=== PATIENT | female | born 1935 | race Caucasian/White ===

== ENCOUNTER 2017-10-12 11:15 | Outpatient (CLI) | payer MEDICARE ==
--- NOTE | 2017-10-12 13:18 | MRI ---
MRI BRAIN WITHOUT CONTRAST: Date: 10/12/17 HISTORY: Confusion and disorientation. FINDINGS: Comparison made with exam of 04/15/06,. No restricted diffusion is seen. No evidence of infarct, hemorrhage, midline shift, or abnormal extra -axial fluid collections are noted. There are multiple foci of T2 prolongation in the periventricular white matter consistent with chronic small vessel ischemic disease. The ventricular size is appropri ate and the basilar cisterns are patent. The visualized paranasal sinuses are well aerated. There is a small amount of fluid in the mastoid air cells. IMPRESSION: 1. Chronic small vessel ischemic disease. 2. No evidence of acute intracranial process. POS: [facility]
--- NOTE | 2017-10-20 13:36 | EEG ---
Referring Physician: DR. KATHRINE LE EEG # [id number] PROCEDURE: Outpatient electroencephalogram NAME OF PATIENT: Gwendolyn Wetzel : 1935 DATE EEG DONE: 10/12/2017. INDICATION: Episode of confusion, disorientation, lethargy. EEG CLASSIFICATION: Normal awake and drowsy. REPORT: This is a 22-channel digital EEG recording utilizing 10-20 international electrode placement system on a patient who presents with episodes of confusion, disorientation and lethargy. During wakefulness, the background activity consists of moderate to high amplitude dominant alpha rhythm of 8-10 Hz. It is symmetric and reactive. This activity is penetrated occasionally by low amplitude fast beta activity and with myogenic activity representing frontalis and temporalis muscles bilaterally. There is no asymmetry noted between the two hemispheres. DROWSINESS AND SLEEP: Subject is able to attain brief periods of drowsiness with diffuse theta activity. No clear sleep recorded during this EEG. There is no asymmetry or paroxysmal activity noted. INDUCTION: HYPERVENTILATION: Hyperventilation did not show any significant change in the background activity. Hyperventilation was stopped after 2-1/2 minutes due to patient complaining of dizziness. PHOTIC STIMULATION: No photic drive seen. EK per minute. IMPRESSION: This EEG is considered normal awake and drowsy EEG. There is no clear epileptiform activity or focal abnormality noted. Clinical correlation recommended. Softball Core Molder: YASH Tenon Machine Operator: [email or web address]
== END 2017-10-12 11:16 | disposition home or self-care (01) ==
LOC: MRI 11:15
PROVIDERS: ATTEND Student in an Organized Health Care Education/Training Program
DX: R41.0 Disorientation, unspecified (principal); F44.89 Other dissociative and conversion disorders; I67.82 Cerebral ischemia
CPT/HCPCS: 70551; 95816

== ENCOUNTER 2018-11-22 10:30 | Emergency (ER) | payer MEDICARE ==
[2018-11-22] MEDS ORDERED: Dexamethasone 4 mg/ml Vial ONE (12:29)
[2018-11-22] MEDS ORDERED: Dexamethasone 10 MG/ML VIAL ONE (12:31)
--- NOTE | 2018-11-22 13:30 | RAD ---
XR Chest 1 View Portable History: Chest pain Comparison: Radiograph 12/12/2015 Findings: Mild chronic blunting left lateral costophrenic sulcus. Recording device projects over the left hemithorax. No focal airspace consolidation. Mild S-shaped scoliosis. Impression: No acute intrathoracic abnormality.
[2018-11-22 13:49] LABS: #Eosinphils 0.2 thou/uL (0.0-0.7); #Lymphocytes 1.7 thou/uL (1.20-3.40); #Monocytes 0.6 thou/uL (0.11-0.59); #Neutrophils 4.7 thou/uL (1.40-6.50); %Basophils 0.6 % (0.0-1.0); %Eosinophils 3.2 % (0.0-10.0); %Lymphocytes 23.9 % (21.0-51.0); %Monocytes 8.2 % (0.0-10.0); %Neutrophils 64.2 % (42.0-75.0); Hemoglobin 14.3 g/dL (12.0-16.0); Mean Corpuscular HGB CONC 33.1 g/dL (32.0-36.0); Mean Corpuscular Hemoglobin 31.2 pg (27.0-31.0); Mean Corpuscular Volume 94.5 fL (78.0-98.0); Mean Platelet Volume 10.2 fL (7.4-10.4); Platelet Count 186 thou/uL (130-400); RBC Distribution Width 12.5 % (11.5-14.5); Red Blood Cell (RBC) Count 4.59 mill/uL (4.20-5.40); White Blood Cell (WBC) Count 7.3 thou/uL (4.8-10.8)
[2018-11-22 14:09] LABS: ALT (SGPT) 12 U/L (8-55); AST (SGOT) 15 U/L (5-34); Albumin 3.9 g/dL (3.4-4.8); Alkaline Phosphatase 59 U/L (40-150); Anion Gap 12 mmol/L (10-20); BUN (Urea Nitrogen) 9 mg/dL (9.8-20.1); Bilirubin, Total 0.6 mg/dL (0.2-1.2); Calc. Creatinine Clearance 0 mL/min (70-130); Calcium 9.4 mg/dL (7.8-10.44); Carbon Dioxide 26 mmol/L (23-31); Chloride 108 mmol/L (98-107); Estimated GFR-MDRD 67; Glucose 93 mg/dL (83-110); Potassium 4.3 mmol/L (3.5-5.1); Protein, Total 5.9 g/dL (6.0-8.3); Sodium 142 mmol/L (136-145)
== END 2018-11-22 15:40 | disposition home or self-care (01) ==
LOC: ERS 10:30
DX: M54.12 Radiculopathy, cervical region (principal); Z87.891 Personal history of nicotine dependence
CPT/HCPCS: 36415; 71045; 80053; 84484; 85025; 93005; 96372; J1100

== ENCOUNTER 2019-01-11 13:00 | Outpatient (CLI) | payer MEDICARE ==
[~2019-01-11 13:00] MED LIST: Gadobenate Dimeglumine 529 MG/1 ML (20ML VIAL) ONE
--- NOTE | 2019-01-11 14:40 | CT ---
CT CERVICAL SPINE WITHOUT CONTRAST: 01/11/19 COMPARISON: 02/07/15. HISTORY: Cervical fusion. Patient heard/felt a popping in his neck. Pain radiates down the right arm. FINDINGS: No craniocervical dissociation. Appropriate alignment of the lateral masses of C1 and C2. Intact odo ntoid process. Cervical spine vertebral height is maintained. No fracture. Uncomplicated cervical fus ion at C4 and C5. Intervening disc space has a prosthesis. No perihardware lucency. Soft tissue calcifications are due to atherosclerotic disease of the carotid arteries. Soft tissue ne ck structures are otherwise unremarkable. Upper mediastinum and lung apices are also unremarkable. Cervical spine vertebral body height is maintained. No fracture. C2-C3: No significant central canal stenosis. Neural foramina are patent. C3-C4: No significant central canal stenosis or neural foraminal narrowing. Right facet hypertrophy. C4-C5: No significant central canal stenosis. Minimal central osteophyte ridge. Neural foramina are p atent. There is 2.6 mm of anterolisthesis of C4 upon C5. C5-C6: There appears to be fusion of the disc space. No high grade central canal stenosis. Mild bilat eral foraminal narrowing due to uncovertebral and facet hypertrophy. C6-C7: 1.8 mm of anterolisthesis of C6 upon C7. No significant central canal stenosis. Neural foramin a are patent. There is right facet hypertrophy. C7-T1: No significant central canal stenosis. Neural foramina are patent. IMPRESSION: 1. Uncomplicated cervical fusion at C4-C5. 2. Disc prosthesis at C4-C5. Fusion of the C5-C6 disc space, unchanged. 3. Varying degrees of neural foraminal narrowing as detailed above. POS: [facility]
--- NOTE | 2019-01-11 15:11 | MRI ---
MRI CERVICAL SPINE WITH AND WITHOUT CONTRAST: 01/11/19 HISTORY: Patient heard pops and crackles in her neck. Previous cervical fusion. COMPARISON: None. TECHNIQUE: The cervical spine MRI is performed with and without intravenous gadolinium administration. Multisequ ential, multiplanar imaging is performed. FINDINGS: Appropriate T1 marrow signal intensity of the cervical vertebrae. Cervical spine vertebral body heigh t is maintained. No fracture. No significant STIR hyperintensity to suggest vertebral body edema or l igamentous injury. Note, there is metallic susceptibility artifact limiting evaluation of the C4 and C5 levels. The visualized brain parenchyma, cervicomedullary junction, cervical cord, and the upper thoracic cor d have a normal size and signal intensity. On the postcontrast images, no abnormal enhancement of the visualized brain parenchyma or spinal cord . No abnormal enhancement with regards to the vertebral bodies. There is 1.4 mm of anterolisthesis of C3 upon C4 and 2.3 mm anterolisthesis of C7 upon T1. C2-C3: No significant central canal stenosis. Neural foramina are patent bilaterally. C3-C4: No significant central canal stenosis. Mild right foraminal narrowing due to uncovertebral and facet hypertrophy. Left neural foramen is patent. C4-C5: No significant osteophyte ridge. No significant central canal stenosis. Neural foramina are pa tent. C5-C6: Fusion of the disc space. Broad based osteophyte ridge with mild central canal stenosis. Mild right and left foraminal narrowing. C6-C7: No significant central canal stenosis of foraminal narrowing. T1-T2: Generalized disc bulge with mild central canal stenosis. T2-T3: Limited evaluation but there does appear to be mass effect upon the thecal sac secondary to t he disc bulge. Dedicated thoracic spine imaging is recommended. IMPRESSION: 1. Uncomplicated cervical fusion hardware. 2. Degenerative change of the cervical spine as detailed above. 3. Degenerative change of the upper thoracic spine, incompletely evaluated. Dedicated thoracic s pine imaging is recommended. POS: OFF
--- NOTE | 2019-01-11 15:42 | RAD ---
CERVICAL SPINE SEVEN VIEWS INCLUDING FLEXION AND EXTENSION: HISTORY: Disk degenerative disease. Cervical radiculopathy. Neck pain. Cervical spine stenosis. COMPARISON: 03/28/2016 FINDINGS: C1 to the cervicothoracic junction is seen on the lateral Swimmer's views of the cervical spine. Again noted are post surgical changes related to anterior cervical fusion, with an anterior plate and screws again transfixing the C4-C5 level. There also appears to be osseous fusion of the C5 and C6 vertebral bodies, also present on the prior exam. Intradiskal prosthesis at the C4-C5 level is prese nt. There is stable trace anterolisthesis of C6 on C7. Multilevel facet degenerative changes are no cindi. There does appear to be correction of the trace anterolisthesis of C6 on C7 on extension, yefri red with flexion. The odontoid is not well seen on the odontoid view, but is grossly normal in appearance on the latera l projection. The prevertebral soft tissues are within normal limits. IMPRESSION: 1. Stable postoperative and degenerative changes of the cervical spine. 2. Stable trace anterolisthesis of C6 on C7, which appears to correct with extension compared to fle irjaon. POS: [facility]
== END 2019-01-11 13:01 | disposition home or self-care (01) ==
LOC: BICCT 13:00
PROVIDERS: ATTEND Physician Assistant Surgical
DX: M50.30 Other cervical disc degeneration, unspecified cervical region (principal); M54.12 Radiculopathy, cervical region; M48.02 Spinal stenosis, cervical region; Z98.1 Arthrodesis status; Z98.890 Other specified postprocedural states
CPT/HCPCS: 72050; 72125; 72156; 82565; A9577

== ENCOUNTER 2019-11-03 06:47 | Emergency (ER) | payer MEDICARE ==
[2019-11-03 07:25] LABS: #Eosinphils 0.2 thou/uL (0.0-0.7); #Lymphocytes 1.9 thou/uL (1.20-3.40); #Monocytes 0.7 thou/uL (0.11-0.59); #Neutrophils 6.4 thou/uL (1.40-6.50); %Basophils 0.5 % (0.0-1.0); %Eosinophils 2.3 % (0.0-10.0); %Lymphocytes 20.2 % (21.0-51.0); %Monocytes 7.9 % (0.0-10.0); %Neutrophils 69.1 % (42.0-75.0); Hemoglobin 15.5 g/dL (12.0-16.0); Mean Corpuscular HGB CONC 32.8 g/dL (32.0-36.0); Mean Corpuscular Hemoglobin 32.3 pg (27.0-31.0); Mean Corpuscular Volume 98.6 fL (78.0-98.0); Mean Platelet Volume 9.8 fL (7.4-10.4); Platelet Count 202 thou/uL (130-400); RBC Distribution Width 12.5 % (11.5-14.5); Red Blood Cell (RBC) Count 4.79 mill/uL (4.20-5.40); White Blood Cell (WBC) Count 9.2 thou/uL (4.8-10.8)
[2019-11-03 07:45] LABS: ALT (SGPT) 15 U/L (8-55); AST (SGOT) 21 U/L (5-34); Albumin 3.9 g/dL (3.4-4.8); Alkaline Phosphatase 65 U/L (40-110); Anion Gap 15 mmol/L (10-20); BUN (Urea Nitrogen) 9 mg/dL (9.8-20.1); Bilirubin, Total 0.6 mg/dL (0.2-1.2); Calc. Creatinine Clearance 0 mL/min (70-130); Calcium 9.1 mg/dL (7.8-10.44); Carbon Dioxide 21 mmol/L (23-31); Chloride 109 mmol/L (98-107); Estimated GFR-MDRD 64; Globulin 2.5 g/dL (2.4-3.5); Glucose 111 mg/dL (83-110); Magnesium 2.1 mg/dL (1.6-2.6); Protein, Total 6.4 g/dL (6.0-8.3); Sodium 141 mmol/L (136-145)
--- NOTE | 2019-11-03 07:53 | RAD ---
SINGLE VIEW OF THE CHEST: COMPARISON: 11/22/2018. HISTORY: Weakness. FINDINGS: A single view of the chest shows a normal-size cardiomediastinal silhouette. A cardiac monitoring de vice projects over the left chest wall. Atherosclerotic calcifications are seen in the aorta. There is no evidence of consolidation, mass, or pleural effusion. IMPRESSION: No evidence of acute cardiopulmonary disease. POS: [facility]
[2019-11-03 08:17] LABS: Bilirubin Negative (Negative); Blood, Urine Negative (Negative); Clarity Clear (Clear); Glucose, Urine (Dipstick) Normal (Negative); Leukocyte Negative Leu/uL (Negative); Nitrite Negative (Negative); Protein, Urine (Dipstick) Negative (Neg-Trace); Urobilinogen Normal mg/dL (Less than 2)
== END 2019-11-03 09:39 | disposition home or self-care (01) ==
LOC: ERS 06:47
DX: R53.1 Weakness (principal); F41.9 Anxiety disorder, unspecified; Z87.891 Personal history of nicotine dependence; Z79.899 Other long term (current) drug therapy
CPT/HCPCS: 36415; 51701; 71045; 80053; 81003; 83735; 84484; 85025; 93005; A4353

== ENCOUNTER 2020-05-22 09:27 | Emergency (ER) | payer MEDICARE ==
--- NOTE | 2020-05-22 10:24 | RAD ---
RADIOGRAPH CHEST 1 VIEW: DATE: 05/22/2020 HISTORY: 84-year-old female with cough FINDINGS: There is no airspace density, pulmonary edema, or pneumothorax. The lateral costophrenic angles are n ot effaced. IMPRESSION: No acute pulmonary findings.
[2020-05-22] MEDS ORDERED: Iopamidol-370 76% 500 ML 1 ML ONE (10:33)
[2020-05-22 10:35] LABS: #Eosinphils 0.2 thou/uL (0.0-0.7); #Lymphocytes 1.5 thou/uL (1.20-3.40); #Monocytes 0.5 thou/uL (0.11-0.59); #Neutrophils 5.2 thou/uL (1.40-6.50); %Basophils 0.6 % (0.0-1.0); %Eosinophils 2.2 % (0.0-10.0); %Lymphocytes 20.7 % (21.0-51.0); %Monocytes 6.4 % (0.0-10.0); %Neutrophils 70.1 % (42.0-75.0); Hemoglobin 16.3 g/dL (12.0-16.0); Mean Corpuscular HGB CONC 32.6 g/dL (32.0-36.0); Mean Corpuscular Hemoglobin 32.6 pg (27.0-31.0); Mean Platelet Volume 10.6 fL (7.4-10.4); Platelet Count 230 thou/uL (130-400); RBC Distribution Width 13.3 % (11.5-14.5); Red Blood Cell (RBC) Count 4.98 mill/uL (4.20-5.40); White Blood Cell (WBC) Count 7.4 thou/uL (4.8-10.8)
[2020-05-22 11:07] LABS: ALT (SGPT) 21 U/L (8-55); AST (SGOT) 34 U/L (5-34); Albumin 3.9 g/dL (3.4-4.8); Alkaline Phosphatase 64 U/L (40-110); Anion Gap 18 mmol/L (10-20); BUN (Urea Nitrogen) 12 mg/dL (9.8-20.1); Bilirubin, Total 0.8 mg/dL (0.2-1.2); Calc. Creatinine Clearance 0 mL/min (70-130); Calcium 9.3 mg/dL (7.8-10.44); Carbon Dioxide 21 mmol/L (23-31); Chloride 106 mmol/L (98-107); Globulin 2.9 g/dL (2.4-3.5); Glucose 119 mg/dL (83-110); Lipase 5 U/L (8-78); Potassium 4.2 mmol/L (3.5-5.1); Protein, Total 6.8 g/dL (6.0-8.3); Sodium 141 mmol/L (136-145)
--- NOTE | 2020-05-22 12:02 | CT ---
CT BRAIN WITHOUT CONTRAST: HISTORY:Altered mental status COMPARISON:09/16/2015 FINDINGS: There are foci of decreased attenuation in the periventricular white matter, consistent with chronic small vessel ischemic disease. No evidence of acute infarct, hemorrhage, midline shift or abnormal extra-axial fluid collections is seen. The ventricular size is appropriate and the basilar cisterns are patent. The bony calvarium is intact. The visualized paranasal sinuses and mastoid air cells are well aerated. IMPRESSION: No CT evidence of acute intracranial process.
--- NOTE | 2020-05-22 13:38 | CT ---
CT ABDOMEN AND PELVIS PERFORMED WITH CONTRAST ENHANCEMENT: 05/22/20 HISTORY: Abdominal pain. The lung bases are clear of infiltrates. The liver and spleen appear unremarkable. The pancreas is mildly strophic. The gallbladder has been r emoved. Right and left adrenal glands are normal. There is some cortical scarring involving the left kidney. No obstruction. There is no significant periaortic or mesenteric adenopathy. No evidence for obstruct ion. CT OF PELVIS PERFORMED WITH CONTRAST ENHANCEMENT: The appendix is not definitely identified. No pelvic lymphadenopathy or mass. Sigmoid diverticulosis is noted. Marked arthritic changes in the spine are noted. Prominent spondylolisthesis of L4 on L5 and pars def ects noted. IMPRESSION: 1. No acute findings of the abdomen or pelvis. 2. Post cholecystectomy change. 3. Sigmoid diverticulosis. POS: [facility]
[2020-05-22 13:44] LABS: Bilirubin Negative (Negative); Blood, Urine Negative (Negative); Clarity Clear (Clear); Glucose, Urine (Dipstick) Normal (Negative); Ketone, Urine 10 mg/dL (Negative); Leukocyte Negative Leu/uL (Negative); Nitrite Negative (Negative); Protein, Urine (Dipstick) Negative (Neg-Trace); Urobilinogen Normal mg/dL (Less than 2)
[2020-05-22 13:47] LABS: Specific Gravity, Urine 1.045 (1.002-1.036)
== END 2020-05-22 14:33 | disposition home or self-care (01) ==
LOC: ERS 09:27
DX: R10.9 Unspecified abdominal pain (principal); R10.817 Generalized abdominal tenderness; I95.9 Hypotension, unspecified; Z87.891 Personal history of nicotine dependence; Z79.899 Other long term (current) drug therapy
CPT/HCPCS: 36415; 70450; 71045; 74177; 80053; 81003; 83605; 83690; 83880; 84484; 85025; 87040; 87086; 93005; Q9967

== ENCOUNTER 2020-05-24 13:07 | Emergency (ER) | payer MEDICARE ==
[2020-05-24 15:27] LABS: #Eosinphils 0.1 thou/uL (0.0-0.7); #Lymphocytes 1.8 thou/uL (1.20-3.40); #Monocytes 0.7 thou/uL (0.11-0.59); #Neutrophils 7.9 thou/uL (1.40-6.50); %Basophils 0.4 % (0.0-1.0); %Eosinophils 0.7 % (0.0-10.0); %Lymphocytes 17.1 % (21.0-51.0); %Monocytes 6.7 % (0.0-10.0); Hemoglobin 16.6 g/dL (12.0-16.0); Mean Corpuscular HGB CONC 33.3 g/dL (32.0-36.0); Mean Corpuscular Hemoglobin 33.1 pg (27.0-31.0); Mean Corpuscular Volume 99.4 fL (78.0-98.0); Mean Platelet Volume 9.9 fL (7.4-10.4); Platelet Count 233 thou/uL (130-400); RBC Distribution Width 13.1 % (11.5-14.5); Red Blood Cell (RBC) Count 5.03 mill/uL (4.20-5.40); White Blood Cell (WBC) Count 10.5 thou/uL (4.8-10.8)
[2020-05-24 15:53] LABS: ALT (SGPT) 21 U/L (8-55); AST (SGOT) 24 U/L (5-34); Albumin 4.1 g/dL (3.4-4.8); Alkaline Phosphatase 58 U/L (40-110); Anion Gap 20 mmol/L (10-20); BUN (Urea Nitrogen) 20 mg/dL (9.8-20.1); Bilirubin, Total 0.8 mg/dL (0.2-1.2); Calc. Creatinine Clearance 0 mL/min (70-130); Calcium 9.2 mg/dL (7.8-10.44); Carbon Dioxide 20 mmol/L (23-31); Chloride 102 mmol/L (98-107); Globulin 2.6 g/dL (2.4-3.5); Glucose 89 mg/dL (83-110); Potassium 4.3 mmol/L (3.5-5.1); Protein, Total 6.7 g/dL (6.0-8.3); Sodium 138 mmol/L (136-145)
[2020-05-24] MEDS ORDERED: Morphine 2 MG/ML VIAL ONE (16:45)
== END 2020-05-24 19:10 | disposition home or self-care (01) ==
LOC: ERS 13:07
DX: R51.9 Headache, unspecified (principal); F41.9 Anxiety disorder, unspecified; Z87.891 Personal history of nicotine dependence; Z79.899 Other long term (current) drug therapy
CPT/HCPCS: 80053; 85025; 85652; 86140; J2270; 36415; 96372; 99284

== ENCOUNTER 2020-12-21 15:34 | Emergency (ER) | payer MEDICARE ==
[2020-12-21 15:59] LABS: #Eosinphils 0.1 thou/uL (0.0-0.7); #Lymphocytes 1.7 thou/uL (1.20-3.40); #Monocytes 0.9 thou/uL (0.11-0.59); #Neutrophils 7.7 thou/uL (1.40-6.50); %Basophils 0.4 % (0.0-1.0); %Eosinophils 0.6 % (0.0-10.0); %Lymphocytes 16.2 % (21.0-51.0); %Monocytes 8.8 % (0.0-10.0); %Neutrophils 74.1 % (42.0-75.0); Hemoglobin 15.9 g/dL (12.0-16.0); Mean Corpuscular HGB CONC 35.1 g/dL (32.0-36.0); Mean Platelet Volume 10.7 fL (7.4-10.4); Platelet Count 200 thou/uL (130-400); RBC Distribution Width 15.7 % (11.5-14.5); Red Blood Cell (RBC) Count 4.29 mill/uL (4.20-5.40); White Blood Cell (WBC) Count 10.4 thou/uL (4.8-10.8)
[2020-12-21 16:27] LABS: ALT (SGPT) 15 U/L (8-55); AST (SGOT) 18 U/L (5-34); Albumin 3.2 g/dL (3.4-4.8); Alkaline Phosphatase 70 U/L (40-110); Anion Gap 12 mmol/L (10-20); BUN (Urea Nitrogen) 34 mg/dL (9.8-20.1); Bilirubin, Total 1.1 mg/dL (0.2-1.2); Calc. Creatinine Clearance 0 mL/min (70-130); Calcium 9.1 mg/dL (7.8-10.44); Carbon Dioxide 25 mmol/L (23-31); Chloride 107 mmol/L (98-107); Globulin 2.4 g/dL (2.4-3.5); Glucose 88 mg/dL (83-110); Lipase 7 U/L (8-78); Potassium 3.4 mmol/L (3.5-5.1); Protein, Total 5.6 g/dL (5.8-8.1); Sodium 141 mmol/L (136-145)
[2020-12-21 16:34] LABS: Clarity Clear (Clear); Specific Gravity, Urine 1.022 (1.002-1.036)
[2020-12-21 16:35] LABS: Bilirubin Unable to Interpret (Negative); Blood, Urine Unable to Interpret (Negative); Glucose, Urine (Dipstick) Unable to Interpret mg/dL (Negative); Ketone, Urine Unable to Interpret mg/dL (Negative); Leukocyte Unable to Interpret (Negative); Nitrite Unable to Interpret (Negative); Protein, Urine (Dipstick) Unable to Interpret mg/dL (Neg-Trace); Urobilinogen UNABLE TO INTERPRET mg/dL (Less than 2); pH, Urine 4.9 (5.0-9.0)
[2020-12-21 16:38] LABS: Bacteria/HPF Rare-Few HPF (None Seen); RBC/HPF None Seen HPF (0-3); Squamous Epithelial 0-3 HPF (0-3); WBC/HPF 0-3 HPF (0-3)
== END 2020-12-21 21:30 ==
LOC: ERS 15:34
DX: F03.90 Unspecified dementia, unspecified severity, without behavioral disturbance, psychotic disturbance, mood disturbance, and anxiety (principal); R53.1 Weakness; I95.9 Hypotension, unspecified; R26.9 Unspecified abnormalities of gait and mobility; R00.0 Tachycardia, unspecified; Z87.891 Personal history of nicotine dependence; W19.XXXA Unspecified fall, initial encounter
CPT/HCPCS: 36415; 51701; 70450; 80053; 81003; 81015; 83605; 83690; 83880; 84484; 85025; 87086; 93005

== ENCOUNTER 2021-03-07 09:05 | Emergency (ER) | payer MEDICARE ==
[2021-03-07 09:50] LABS: #Eosinphils 0.3 thou/uL (0.0-0.7); #Lymphocytes 1.6 thou/uL (1.20-3.40); #Monocytes 0.7 thou/uL (0.11-0.59); #Neutrophils 3.9 thou/uL (1.40-6.50); %Basophils 0.6 % (0.0-1.0); %Eosinophils 4.8 % (0.0-10.0); %Lymphocytes 24.7 % (21.0-51.0); Hemoglobin 12.7 g/dL (12.0-16.0); Mean Corpuscular HGB CONC 32.9 g/dL (32.0-36.0); Mean Platelet Volume 11.1 fL (7.4-10.4); Platelet Count 193 thou/uL (130-400); RBC Distribution Width 13.3 % (11.5-14.5); Red Blood Cell (RBC) Count 3.84 mill/uL (4.20-5.40); White Blood Cell (WBC) Count 6.5 thou/uL (4.8-10.8)
[2021-03-07 10:13] LABS: ALT (SGPT) 15 U/L (8-55); AST (SGOT) 20 U/L (5-34); Albumin 3.5 g/dL (3.4-4.8); Alkaline Phosphatase 49 U/L (40-110); Anion Gap 10 mmol/L (10-20); BUN (Urea Nitrogen) 15 mg/dL (9.8-20.1); Bilirubin, Total 0.6 mg/dL (0.2-1.2); Calc. Creatinine Clearance 0 mL/min (70-130); Calcium 9.3 mg/dL (7.8-10.44); Carbon Dioxide 24 mmol/L (23-31); Chloride 109 mmol/L (98-107); Globulin 2.4 g/dL (2.4-3.5); Glucose 95 mg/dL (83-110); Potassium 4.3 mmol/L (3.5-5.1); Protein, Total 5.9 g/dL (5.8-8.1); Sodium 139 mmol/L (136-145)
[2021-03-07 12:23] LABS: Bilirubin Negative (Negative); Blood, Urine Negative (Negative); Glucose, Urine (Dipstick) Negative (Negative); Ketone, Urine Negative (Negative); Leukocyte Negative (Negative); Nitrite Negative (Negative); Protein, Urine (Dipstick) Negative (Neg-Trace); Urobilinogen 0.2 mg/dL (Less than 2)
[2021-03-07 12:31] LABS: Clarity Clear (Clear)
== END 2021-03-07 14:20 | disposition home or self-care (01) ==
LOC: ERS 09:05
DX: M25.522 Pain in left elbow (principal); M25.561 Pain in right knee; E03.9 Hypothyroidism, unspecified; W19.XXXA Unspecified fall, initial encounter; Y92.129 Unspecified place in nursing home as the place of occurrence of the external cause; Z87.891 Personal history of nicotine dependence; Z79.899 Other long term (current) drug therapy
CPT/HCPCS: 51701; 70450; 72125; 80053; 81003; 84484; 85025; 93005; 94760

== ENCOUNTER 2021-03-29 20:18 | Emergency (ER) | payer MEDICARE ==
[2021-03-29] MEDS ORDERED: Acetaminophen 325 MG TAB ONE (21:00)
[2021-03-29 21:01] LABS: #Basophils 0.1 thou/uL (0.0-0.2); #Eosinphils 0.1 thou/uL (0.0-0.7); #Monocytes 0.7 thou/uL (0.11-0.59); #Neutrophils 6.5 thou/uL (1.40-6.50); %Basophils 0.6 % (0.0-1.0); %Eosinophils 1.4 % (0.0-10.0); %Lymphocytes 21.4 % (21.0-51.0); %Monocytes 7.7 % (0.0-10.0); %Neutrophils 68.9 % (42.0-75.0); Hemoglobin 12.9 g/dL (12.0-16.0); Mean Corpuscular HGB CONC 34.5 g/dL (32.0-36.0); Mean Corpuscular Hemoglobin 34.1 pg (27.0-31.0); Mean Corpuscular Volume 98.7 fL (78.0-98.0); Mean Platelet Volume 10.7 fL (7.4-10.4); Platelet Count 215 thou/uL (130-400); RBC Distribution Width 12.3 % (11.5-14.5); Red Blood Cell (RBC) Count 3.78 mill/uL (4.20-5.40); White Blood Cell (WBC) Count 9.4 thou/uL (4.8-10.8)
[2021-03-29 21:29] LABS: ALT (SGPT) 7 U/L (8-55); AST (SGOT) 12 U/L (5-34); Albumin 3.7 g/dL (3.4-4.8); Alkaline Phosphatase 62 U/L (40-110); Anion Gap 16 mmol/L (10-20); BUN (Urea Nitrogen) 16 mg/dL (9.8-20.1); Bilirubin, Total 0.3 mg/dL (0.2-1.2); Calc. Creatinine Clearance 0 mL/min (70-130); Calcium 9.5 mg/dL (7.8-10.44); Carbon Dioxide 23 mmol/L (23-31); Chloride 105 mmol/L (98-107); Globulin 2.4 g/dL (2.4-3.5); Glucose 90 mg/dL (83-110); Lipase 17 U/L (8-78); Protein, Total 6.1 g/dL (5.8-8.1); Sodium 140 mmol/L (136-145)
== END 2021-03-30 00:50 | disposition home or self-care (01) ==
LOC: ERS 20:18
DX: R07.81 Pleurodynia (principal); I95.9 Hypotension, unspecified; Z87.891 Personal history of nicotine dependence; E03.9 Hypothyroidism, unspecified; Z79.899 Other long term (current) drug therapy
CPT/HCPCS: 36415; 71045; 80053; 83690; 84484; 85025; 93005

== ENCOUNTER 2021-03-31 16:57 | Emergency (ER) | payer OTHER, MEDICARE ==
[2021-03-31] MEDS ORDERED: Bacitracin 1 PK ONE (18:31)
== END 2021-03-31 19:20 ==
LOC: ERS 16:57
DX: S09.90XA Unspecified injury of head, initial encounter (principal); S51.812A Laceration without foreign body of left forearm, initial encounter; W01.198A Fall on same level from slipping, tripping and stumbling with subsequent striking against other object, initial encounter; Z79.899 Other long term (current) drug therapy; E03.9 Hypothyroidism, unspecified; Z87.891 Personal history of nicotine dependence
CPT/HCPCS: 70450; 72125

== ENCOUNTER 2021-05-20 13:53 | Outpatient (CLI) | payer MEDICARE ==
[2021-05-21 11:04] LABS: SARS-CoV-2 PCR by NAA Not Detected (NotDetected)
== END 2021-05-20 13:54 | disposition home or self-care (01) ==
LOC: LABBT 13:53
PROVIDERS: ATTEND Internal Medicine Gastroenterology
DX: Z01.812 Encounter for preprocedural laboratory examination (principal); Z20.822 Contact with and (suspected) exposure to COVID-19
CPT/HCPCS: U0003; U0005

== ENCOUNTER 2021-05-23 09:49 | Day surgery (SDC) | payer MEDICARE ==
[2021-05-22 13:32] VITALS: BMI 17.6
[2021-05-23] MEDS ORDERED: Ketamine 50 MG/ML (10ML VIAL) ONE (12:05)
[2021-05-23] MEDS ORDERED: PROPOFOL 200 MG/20 ML VIAL ONE (12:22)
== END 2021-05-23 13:30 ==
LOC: SDC 09:49
PROVIDERS: ATTEND Internal Medicine Gastroenterology
PROC: 0D757ZZ Dilation of Esophagus, Via Natural or Artificial Opening (ICD-10-PCS; principal; 2021-05-23)
DX: R13.12 Dysphagia, oropharyngeal phase (principal); K44.9 Diaphragmatic hernia without obstruction or gangrene; E78.5 Hyperlipidemia, unspecified; E03.9 Hypothyroidism, unspecified; K21.9 Gastro-esophageal reflux disease without esophagitis; Z79.899 Other long term (current) drug therapy; Z88.5 Allergy status to narcotic agent; Z87.891 Personal history of nicotine dependence
CPT/HCPCS: J2704

== ENCOUNTER 2021-07-02 01:50 | Emergency (ER) | payer MEDICARE ==
[2021-07-02 02:45] LABS: #Basophils 0.1 thou/uL (0.0-0.2); #Eosinphils 0.1 thou/uL (0.0-0.7); #Lymphocytes 1.5 thou/uL (1.20-3.40); #Monocytes 0.8 thou/uL (0.11-0.59); #Neutrophils 4.4 thou/uL (1.40-6.50); %Basophils 1.1 % (0.0-1.0); %Eosinophils 1.8 % (0.0-10.0); %Lymphocytes 21.5 % (21.0-51.0); %Monocytes 11.2 % (0.0-10.0); %Neutrophils 64.4 % (42.0-75.0); Hemoglobin 14.6 g/dL (12.0-16.0); Mean Corpuscular HGB CONC 35.1 g/dL (32.0-36.0); Mean Corpuscular Hemoglobin 33.8 pg (27.0-31.0); Mean Corpuscular Volume 96.3 fL (78.0-98.0); Mean Platelet Volume 9.5 fL (7.4-10.4); Platelet Count 197 thou/uL (130-400); RBC Distribution Width 13.5 % (11.5-14.5); Red Blood Cell (RBC) Count 4.32 mill/uL (4.20-5.40); White Blood Cell (WBC) Count 6.8 thou/uL (4.8-10.8)
[2021-07-02 03:08] LABS: ALT (SGPT) 12 U/L (8-55); AST (SGOT) 14 U/L (5-34); Albumin 4.1 g/dL (3.4-4.8); Alkaline Phosphatase 52 U/L (40-110); Anion Gap 17 mmol/L (10-20); BUN (Urea Nitrogen) 17 mg/dL (9.8-20.1); Bilirubin, Total 1.8 mg/dL (0.2-1.2); Calc. Creatinine Clearance 0 mL/min (70-130); Calcium 9.4 mg/dL (7.8-10.44); Carbon Dioxide 19 mmol/L (23-31); Chloride 107 mmol/L (98-107); Globulin 2.5 g/dL (2.4-3.5); Glucose 100 mg/dL (83-110); Potassium 3.4 mmol/L (3.5-5.1); Protein, Total 6.6 g/dL (5.8-8.1); Sodium 140 mmol/L (136-145)
[2021-07-02 04:23] LABS: Bacteria/HPF None Seen HPF (None Seen); Bilirubin Negative (Negative); Blood, Urine 1+ (Negative); Clarity Extra Turbid (Clear); Glucose, Urine (Dipstick) Normal (Negative); Ketone, Urine 40 mg/dL (Negative); Leukocyte 500 Leu/uL (Negative); Nitrite 1+ (Negative); Protein, Urine (Dipstick) 30 mg/dL (Neg-Trace); Specific Gravity, Urine 1.023 (1.002-1.036); Squamous Epithelial 0-3 HPF (0-3); WBC/HPF Greater than 50 HPF (0-3); pH, Urine 5.5 (5.0-9.0)
[2021-07-02] MEDS ORDERED: cefTRIAXone\\ROCEPHIN 1 GM VIAL ONE (04:44)
[2021-07-02] MEDS ORDERED: Lidocaine 1% PF 5 ML VIAL ONE (04:44)
== END 2021-07-02 05:55 | disposition home or self-care (01) ==
LOC: ERS 01:50
DX: N39.0 Urinary tract infection, site not specified (principal); E03.9 Hypothyroidism, unspecified; Z87.891 Personal history of nicotine dependence
CPT/HCPCS: 36415; 51701; 80053; 81003; 81015; 84484; 85025; 87077; 87086; 87186; 93005; 96372; J0696

== ENCOUNTER 2021-08-06 15:22 | Outpatient (CLI) | payer MEDICARE | END 2021-08-06 15:23 | disposition home or self-care (01) | LOC: BICRAD 15:22 | PROVIDERS: ATTEND Family Medicine | DX: M47.816 Spondylosis without myelopathy or radiculopathy, lumbar region (principal); M41.57 Other secondary scoliosis, lumbosacral region; M43.16 Spondylolisthesis, lumbar region | CPT/HCPCS: 36415; 72100; 82024; 82533; 84436; 84443; 84480 ==

== ENCOUNTER 2021-10-30 13:19 | Outpatient (CLI) | payer MEDICARE | END 2021-10-30 13:20 | disposition home or self-care (01) | LOC: ULT 13:19 | PROVIDERS: ATTEND Family Medicine | DX: I73.9 Peripheral vascular disease, unspecified (principal) | CPT/HCPCS: 93923 ==

== ENCOUNTER 2021-11-08 04:18 | Emergency (ER) | payer MEDICARE ==
[2021-11-08 05:23] LABS: Anion Gap 13 mmol/L (10-20); BUN (Urea Nitrogen) 16 mg/dL (9.8-20.1); Calc. Creatinine Clearance 0 mL/min (70-130); Calcium 8.8 mg/dL (7.8-10.44); Carbon Dioxide 24 mmol/L (23-31); Chloride 105 mmol/L (98-107); Glucose 98 mg/dL (83-110); Potassium 4.1 mmol/L (3.5-5.1); Sodium 138 mmol/L (136-145)
== END 2021-11-08 05:40 | disposition home or self-care (01) ==
LOC: ERS 04:18
DX: G62.9 Polyneuropathy, unspecified (principal); E16.2 Hypoglycemia, unspecified; E03.9 Hypothyroidism, unspecified; F03.90 Unspecified dementia, unspecified severity, without behavioral disturbance, psychotic disturbance, mood disturbance, and anxiety; Z87.891 Personal history of nicotine dependence; Z79.899 Other long term (current) drug therapy
CPT/HCPCS: 36415; 80048; 99285

== ENCOUNTER 2021-11-20 12:43 | Emergency (ER) | payer MEDICARE ==
[2021-11-20 13:17] LABS: #Basophils 0.1 thou/uL (0.0-0.2); #Eosinphils 0.2 thou/uL (0.0-0.7); #Monocytes 0.9 thou/uL (0.11-0.59); #Neutrophils 5.6 thou/uL (1.40-6.50); %Basophils 0.6 % (0.0-1.0); %Eosinophils 1.8 % (0.0-10.0); %Lymphocytes 23.1 % (21.0-51.0); %Monocytes 10.1 % (0.0-10.0); %Neutrophils 64.4 % (42.0-75.0); Hemoglobin 15.4 g/dL (12.0-16.0); Mean Corpuscular HGB CONC 33.2 g/dL (32.0-36.0); Mean Corpuscular Hemoglobin 33.6 pg (27.0-31.0); Mean Platelet Volume 9.3 fL (7.4-10.4); Platelet Count 237 thou/uL (130-400); Red Blood Cell (RBC) Count 4.58 mill/uL (4.20-5.40); White Blood Cell (WBC) Count 8.6 thou/uL (4.8-10.8)
[2021-11-20] MEDS ORDERED: Ondansetron ODT 4 MG TAB ONE (13:31)
[2021-11-20] MEDS ORDERED: Lidocaine Viscous Sol 2% 15 ml UD Cup ONE (13:31)
[2021-11-20] MEDS ORDERED: Mag-Al 1200 mg/1200 mg/30 ML UDCUP ONE (13:31)
[2021-11-20 13:39] LABS: ALT (SGPT) 12 U/L (8-55); AST (SGOT) 16 U/L (5-34); Albumin 4.2 g/dL (3.4-4.8); Alkaline Phosphatase 76 U/L (40-110); Anion Gap 14 mmol/L (10-20); BUN (Urea Nitrogen) 13 mg/dL (9.8-20.1); Bilirubin, Total 0.9 mg/dL (0.2-1.2); Calc. Creatinine Clearance 0 mL/min (70-130); Calcium 9.2 mg/dL (7.8-10.44); Carbon Dioxide 23 mmol/L (23-31); Chloride 106 mmol/L (98-107); Globulin 2.9 g/dL (2.4-3.5); Glucose 123 mg/dL (83-110); Lipase 9 U/L (8-78); Potassium 3.8 mmol/L (3.5-5.1); Protein, Total 7.1 g/dL (5.8-8.1); Sodium 139 mmol/L (136-145)
== END 2021-11-20 15:08 | disposition home or self-care (01) ==
LOC: ERS 12:43
DX: R07.9 Chest pain, unspecified (principal); R94.31 Abnormal electrocardiogram [ECG] [EKG]; E03.9 Hypothyroidism, unspecified; E16.2 Hypoglycemia, unspecified; Z87.891 Personal history of nicotine dependence; Z79.899 Other long term (current) drug therapy
CPT/HCPCS: 36415; 71045; 80053; 83690; 83880; 84443; 84484; 85025; 93005; 94760; Q0162

== ENCOUNTER 2023-04-21 14:40 | Inpatient (IN) | payer MEDICARE ==
[2023-04-21 15:19] LABS: #Basophils 0.1 thou/uL (0.0-0.2); #Eosinphils 0.3 thou/uL (0.0-0.7); #Monocytes 0.8 thou/uL (0.11-0.59); #Neutrophils 5.9 thou/uL (1.40-6.50); %Basophils 0.6 % (0.0-1.0); %Monocytes 9.3 % (0.0-10.0); %Neutrophils 67.8 % (42.0-75.0); Hematocrit 47.8 % (36.0-47.0); Hemoglobin 16.2 g/dL (12.0-16.0); Mean Corpuscular HGB CONC 33.9 g/dL (32.0-36.0); Mean Corpuscular Hemoglobin 37.1 pg (27.0-31.0); Mean Corpuscular Volume 109.4 fl (78.0-98.0); Mean Platelet Volume 11.4 fL (7.4-10.4); Platelet Count 207 10x3/uL (130-400); RBC Distribution Width 14.1 % (11.5-14.5); Red Blood Cell (RBC) Count 4.37 mill/uL (4.20-5.40); White Blood Cell (WBC) Count 8.7 10x3/uL (4.8-10.8)
[2023-04-21 15:41] LABS: ALT (SGPT) 10 U/L (8-55); AST (SGOT) 15 U/L (5-34); Albumin 4.3 g/dL (3.4-4.8); Alkaline Phosphatase 54 U/L (40-110); Anion Gap 15 mmol/L (10-20); BUN (Urea Nitrogen) 14 mg/dL (9.8-20.1); Bilirubin, Total 0.9 mg/dL (0.2-1.2); Calc. Creatinine Clearance 0 mL/min (70-130); Calcium 9.9 mg/dL (7.8-10.44); Carbon Dioxide 25 mmol/L (23-31); Chloride 105 mmol/L (98-107); Estimated GFR 49; Globulin 2.1 g/dL (2.4-3.5); Glucose 110 mg/dL (83-110); Potassium 4.5 mmol/L (3.5-5.1); Protein, Total 6.4 g/dL (5.8-8.1); Sodium 140 mmol/L (136-145)
[2023-04-21 15:45] LABS: Acetaminophen Less than 10 mcg/mL (10.0-30.0); Alcohol Less than 10.0 mg/dL (Less than 10); Lipase 13 U/L (8-78); Salicylate Less than 8.0 mg/dL (15.0-30.0)
[2023-04-21 17:02] LABS: Troponin I Less than 0.010 ng/mL (< 0.028)
[2023-04-21 19:37] LABS: Bacteria/HPF None Seen HPF (None Seen); Bilirubin Negative (Negative); Blood, Urine 1+ (Negative); CAUTI Indications for Culture Alt mental st,lethar; Clarity Turbid (Clear); Glucose, Urine (Dipstick) Normal (Negative); Ketone, Urine Negative (Negative); Leukocyte 250 Leu/uL (Negative); Nitrite Negative (Negative); Protein, Urine (Dipstick) Negative (Neg-Trace); RBC/HPF 0-3 HPF (0-3); Specific Gravity, Urine 1.009 (1.002-1.036); Urobilinogen Normal mg/dL (Less than 2)
[2023-04-21 19:44] LABS: Amphetamine Not Detected (NotDetected); Barbiturates Screen Not Detected (NotDetected); Benzodiazepine Screen Not Detected (NotDetected); Cocaine Metabolite Screen Not Detected (NotDetected); Methadone Not Detected (NotDetected); Methamphetamine Not Detected (NotDetected); Opiate Screen Detected (NotDetected); Oxycodone Screen Not Detected (NotDetected); Phencyclidine (PCP) Not Detected (NotDetected); THC/Cannabinoid Screen Not Detected (NotDetected); Tricyclic Screen Not Detected (NotDetected)
[2023-04-21 19:48] LABS: Urine Culture Reflex No No
[2023-04-21] MEDS ORDERED: Senokot S 8.6-50 MG TAB PO PRN (20:48)
[2023-04-21] MEDS ORDERED: hydrALAZINE 20 MG/ML VIAL ONE (21:12)
[2023-04-21 23:19] LABS: Free T4 (Free Thyroxine) 1.42 ng/dL (0.70-1.48)
[2023-04-22 00:21] VITALS: BMI 26.1
[2023-04-22] MEDS: Sodium Chloride 0.9% 1,000 ML IV SCH ×2 (01:35→13:02)
[2023-04-22] MEDS: Acetaminophen 325 MG TAB PO PRN ×3 (04:24→21:40)
[2023-04-22 05:31] LABS: #Basophils 0.1 thou/uL (0.0-0.2); #Eosinphils 0.2 thou/uL (0.0-0.7); #Monocytes 0.7 thou/uL (0.11-0.59); #Neutrophils 6.7 thou/uL (1.40-6.50); %Basophils 0.6 % (0.0-1.0); %Eosinophils 2.4 % (0.0-10.0); %Lymphocytes 12.8 % (21.0-51.0); %Monocytes 8.3 % (0.0-10.0); %Neutrophils 75.7 % (42.0-75.0); Hematocrit 43.8 % (36.0-47.0); Mean Corpuscular HGB CONC 34.2 g/dL (32.0-36.0); Mean Corpuscular Hemoglobin 37.3 pg (27.0-31.0); Mean Platelet Volume 10.9 fL (7.4-10.4); Platelet Count 187 10x3/uL (130-400); RBC Distribution Width 14.2 % (11.5-14.5); Red Blood Cell (RBC) Count 4.02 mill/uL (4.20-5.40); White Blood Cell (WBC) Count 8.8 10x3/uL (4.8-10.8)
[2023-04-22 06:31] LABS: Albumin 3.5 g/dL (3.4-4.8); Anion Gap 13 mmol/L (10-20); Bilirubin, Total 1.1 mg/dL (0.2-1.2); Calcium 8.4 mg/dL (7.8-10.44); Carbon Dioxide 21 mmol/L (23-31); Chloride 110 mmol/L (98-107); Globulin 1.9 g/dL (2.4-3.5); Glucose 123 mg/dL (83-110); Potassium 3.8 mmol/L (3.5-5.1); Protein, Total 5.4 g/dL (5.8-8.1); Sodium 140 mmol/L (136-145)
[2023-04-22] MEDS: Folic Acid 1 MG TAB PO SCH (08:52)
[2023-04-22] MEDS: Cyanocobalamin (Vitamin B-12) 1,000 MCG TAB PO SCH (08:53)
[2023-04-22] MEDS: DULoxetine 30 MG CAP PO SCH (08:55)
[2023-04-22 09:00] LABS: ALT (SGPT) 10 U/L (8-55); AST (SGOT) 14 U/L (5-34); Alkaline Phosphatase 45 U/L (40-110); BUN (Urea Nitrogen) 11 mg/dL (9.8-20.1); Calc. Creatinine Clearance 46 mL/min (70-130); Estimated GFR 68
[2023-04-22] MEDS ORDERED: FLU VACC QS2023(65UP)/MF59C/PF 60 MCG/0.5 ML SYRINGE IM ONE (09:00)
[2023-04-22] MEDS: traZODone HCl 50 MG TAB PO PRN (21:40)
[2023-04-23] MEDS: Sodium Chloride 0.9% 1,000 ML IV SCH ×2 (02:26→13:24)
[2023-04-23 04:57] LABS: #Basophils 0.1 thou/uL (0.0-0.2); #Eosinphils 0.3 thou/uL (0.0-0.7); #Monocytes 0.7 thou/uL (0.11-0.59); #Neutrophils 4.1 thou/uL (1.40-6.50); %Basophils 0.7 % (0.0-1.0); %Eosinophils 3.7 % (0.0-10.0); %Lymphocytes 23.9 % (21.0-51.0); %Monocytes 10.7 % (0.0-10.0); %Neutrophils 60.7 % (42.0-75.0); Hematocrit 44.1 % (36.0-47.0); Hemoglobin 15.1 g/dL (12.0-16.0); Mean Corpuscular HGB CONC 34.2 g/dL (32.0-36.0); Mean Corpuscular Volume 108.1 fl (78.0-98.0); Mean Platelet Volume 11.3 fL (7.4-10.4); Platelet Count 177 10x3/uL (130-400); RBC Distribution Width 13.9 % (11.5-14.5); Red Blood Cell (RBC) Count 4.08 mill/uL (4.20-5.40); White Blood Cell (WBC) Count 6.8 10x3/uL (4.8-10.8)
[2023-04-23 05:31] LABS: Anion Gap 13 mmol/L (10-20); BUN (Urea Nitrogen) 8 mg/dL (9.8-20.1); Calc. Creatinine Clearance 45 mL/min (70-130); Calcium 8.7 mg/dL (7.8-10.44); Carbon Dioxide 20 mmol/L (23-31); Chloride 109 mmol/L (98-107); Estimated GFR 66; Glucose 100 mg/dL (83-110); Potassium 3.6 mmol/L (3.5-5.1); Sodium 138 mmol/L (136-145)
[2023-04-23] MEDS: Carvedilol 3.125 MG TAB PO SCH ×2 (09:26→20:08)
[2023-04-23] MEDS: Folic Acid 1 MG TAB PO SCH (09:29)
[2023-04-23] MEDS: Cyanocobalamin (Vitamin B-12) 1,000 MCG TAB PO SCH (09:29)
[2023-04-23] MEDS: DULoxetine 30 MG CAP PO SCH (10:19)
[2023-04-23] MEDS ORDERED: Ondansetron PF 4 MG/2 ML Vial IVP PRN (10:35)
[2023-04-23] MEDS ORDERED: Ondansetron ODT 4 MG TAB PO PRN (10:58)
[2023-04-23] MEDS: risperiDONE 0.25 MG TAB PO SCH (11:35)
[2023-04-23] MEDS: traZODone HCl 50 MG TAB PO PRN (20:08)
[2023-04-23] MEDS: Doxepin HCl 10 MG CAP PO SCH (20:08)
[2023-04-23] MEDS ORDERED: Melatonin 3 MG TAB PO SCH (23:30)
[2023-04-24] MEDS: Sodium Chloride 0.9% 1,000 ML IV SCH (03:37)
[2023-04-24] MEDS: Levothyroxine Sodium 75 MCG TAB PO SCH (06:22)
[2023-04-24] MEDS: Folic Acid 1 MG TAB PO SCH (08:24)
[2023-04-24] MEDS: Carvedilol 3.125 MG TAB PO SCH ×2 (08:24→20:38)
[2023-04-24] MEDS: Cyanocobalamin (Vitamin B-12) 1,000 MCG TAB PO SCH (08:24)
[2023-04-24] MEDS: risperiDONE 0.25 MG TAB PO SCH (11:09)
[2023-04-24] MEDS: traZODone HCl 50 MG TAB PO PRN (20:38)
[2023-04-24] MEDS: Doxepin HCl 10 MG CAP PO SCH (20:39)
[2023-04-25] MEDS: Levothyroxine Sodium 75 MCG TAB PO SCH (07:32)
[2023-04-25] MEDS: Carvedilol 3.125 MG TAB PO SCH ×2 (09:57→20:55)
[2023-04-25] MEDS: Folic Acid 1 MG TAB PO SCH (09:57)
[2023-04-25] MEDS: Cyanocobalamin (Vitamin B-12) 1,000 MCG TAB PO SCH (09:57)
[2023-04-25] MEDS: risperiDONE 0.25 MG TAB PO SCH (12:17)
[2023-04-25] MEDS ORDERED: Cyanocobalamin 1000 MCG/ML VIAL IM SCH (20:30)
[2023-04-25] MEDS: Doxepin HCl 10 MG CAP PO SCH (20:55)
[2023-04-25] MEDS: traZODone HCl 50 MG TAB PO PRN (20:55)
[2023-04-26 05:04] LABS: Anion Gap 14 mmol/L (10-20); BUN (Urea Nitrogen) 8 mg/dL (9.8-20.1); Calc. Creatinine Clearance 39 mL/min (70-130); Calcium 9.2 mg/dL (7.8-10.44); Carbon Dioxide 21 mmol/L (23-31); Chloride 108 mmol/L (98-107); Estimated GFR 57; Glucose 75 mg/dL (83-110); Magnesium 1.7 mg/dL (1.6-2.6); Potassium 3.9 mmol/L (3.5-5.1); Sodium 139 mmol/L (136-145)
[2023-04-26 05:20] LABS: HIV (1/2) Antibody/Antigen Non-Reactive (NonReactive); HIV 1/2 INDEX 0.12 S/CO (<1.00)
[2023-04-26] MEDS: Levothyroxine Sodium 75 MCG TAB PO SCH (06:32)
[2023-04-26] MEDS: Folic Acid 1 MG TAB PO SCH (09:38)
[2023-04-26] MEDS: Cyanocobalamin (Vitamin B-12) 1,000 MCG TAB PO SCH (09:38)
[2023-04-26] MEDS: Carvedilol 3.125 MG TAB PO SCH ×2 (09:38→21:03)
[2023-04-26] MEDS: risperiDONE 0.25 MG TAB PO SCH (11:10)
[2023-04-26 12:51] LABS: Syphilis Antibody Nonreactive (Nonreactive); Syphilis Antibody Index 0.05 S/CO (<1.00 Non-Reactive)
[2023-04-26] MEDS: Doxepin HCl 10 MG CAP PO SCH (21:03)
[2023-04-26] MEDS: traZODone HCl 50 MG TAB PO PRN (21:03)
[2023-04-27] MEDS: Levothyroxine Sodium 75 MCG TAB PO SCH (06:29)
[2023-04-27 07:35] LABS: Anion Gap 14 mmol/L (10-20); BUN (Urea Nitrogen) 7 mg/dL (9.8-20.1); Calc. Creatinine Clearance 44 mL/min (70-130); Calcium 9.6 mg/dL (7.8-10.44); Carbon Dioxide 23 mmol/L (23-31); Chloride 106 mmol/L (98-107); Estimated GFR 65; Glucose 92 mg/dL (83-110); Magnesium 1.7 mg/dL (1.6-2.6); Potassium 3.5 mmol/L (3.5-5.1); Sodium 139 mmol/L (136-145)
[2023-04-27] MEDS: Folic Acid 1 MG TAB PO SCH (09:50)
[2023-04-27] MEDS: Cyanocobalamin (Vitamin B-12) 1,000 MCG TAB PO SCH (09:50)
[2023-04-27] MEDS: Carvedilol 3.125 MG TAB PO SCH ×2 (09:51→20:39)
[2023-04-27] MEDS: risperiDONE 0.25 MG TAB PO SCH ×2 (13:29→16:50)
[2023-04-27] MEDS: traZODone HCl 50 MG TAB PO PRN (20:38)
[2023-04-27] MEDS: Doxepin HCl 10 MG CAP PO SCH (20:42)
[2023-04-28 06:17] LABS: Anion Gap 15 mmol/L (10-20); BUN (Urea Nitrogen) 11 mg/dL (9.8-20.1); Calc. Creatinine Clearance 37 mL/min (70-130); Calcium 9.1 mg/dL (7.8-10.44); Carbon Dioxide 23 mmol/L (23-31); Chloride 105 mmol/L (98-107); Estimated GFR 53; Glucose 91 mg/dL (83-110); Magnesium 1.7 mg/dL (1.6-2.6); Potassium 3.6 mmol/L (3.5-5.1); Sodium 139 mmol/L (136-145)
[2023-04-28] MEDS: Levothyroxine Sodium 75 MCG TAB PO SCH (06:27)
[2023-04-28] MEDS: Carvedilol 3.125 MG TAB PO SCH ×2 (09:57→20:01)
[2023-04-28] MEDS: Cyanocobalamin (Vitamin B-12) 1,000 MCG TAB PO SCH (09:57)
[2023-04-28] MEDS: Folic Acid 1 MG TAB PO SCH (09:57)
[2023-04-28] MEDS: risperiDONE 0.25 MG TAB PO SCH (13:47)
[2023-04-28] MEDS: traZODone HCl 50 MG TAB PO PRN (20:01)
[2023-04-28] MEDS: Doxepin HCl 10 MG CAP PO SCH (20:01)
[2023-04-29] MEDS: Levothyroxine Sodium 75 MCG TAB PO SCH (05:21)
[2023-04-29] MEDS: Carvedilol 3.125 MG TAB PO SCH (08:56)
[2023-04-29] MEDS: Cyanocobalamin (Vitamin B-12) 1,000 MCG TAB PO SCH (08:56)
[2023-04-29] MEDS: Folic Acid 1 MG TAB PO SCH (08:56)
[2023-04-29 11:48] VITALS: BP 132/83; TEMP 97.9
[2023-04-29] MEDS: risperiDONE 0.25 MG TAB PO SCH (12:57)
[2023-05-02] MEDS ORDERED: Cyanocobalamin 1000 MCG/ML VIAL IM SCH (15:30)
== END 2023-04-29 15:15 | DRG 56 ==
LOC: ERS 14:40 → 2SE 21:15 → OBSVTOIN 04-23 14:02
PROVIDERS: ADMIT Internal Medicine; ATTEND Family Medicine
DX: G30.9 Alzheimer's disease, unspecified (principal); G93.41 Metabolic encephalopathy; R65.10 Systemic inflammatory response syndrome (SIRS) of non-infectious origin without acute organ dysfunction; E03.9 Hypothyroidism, unspecified; G47.00 Insomnia, unspecified; R53.1 Weakness; Z66 Do not resuscitate; E53.8 Deficiency of other specified B group vitamins; F02.C0 Dementia in other diseases classified elsewhere, severe, without behavioral disturbance, psychotic disturbance, mood disturbance, and anxiety; K21.9 Gastro-esophageal reflux disease without esophagitis; Z79.899 Other long term (current) drug therapy; Z88.8 Allergy status to other drugs, medicaments and biological substances; Z79.890 Hormone replacement therapy; Z98.890 Other specified postprocedural states; Z90.49 Acquired absence of other specified parts of digestive tract; Z87.891 Personal history of nicotine dependence
CPT/HCPCS: 36415; 51701; 70450; 70551; 71045; 74176; 80048; 80053; 80306; 80307; 81001; 82140; 82607; 83690; 83735; 84145; 84439; 84443; 84481; 84484; 85025; 86780; 87040; 87086; 87389; 93005; 93306; 96361; 96372; 96374; 96375; G0378; J0360; J1650; J2405; J3420; J7050